=== PATIENT | male | born 1985 | race Caucasian/White ===

== ENCOUNTER 2017-02-27 12:19 | Emergency (ER) | payer MEDICAID ==
[2017-02-27 12:42] VITALS: BP 138/87
--- NOTE | 2017-02-27 13:28 | UC ---
Dental HPI - HPI Summary HPI Summary: pt c/o lower left tooth pain and discharge. Pt has 20 year history of poor dentition . - History of Current Complaint Chief Complaint: UCDentalProblem Stated Complaint: dental complaint Time Seen by Provider: 02/27/17 13:14 Hx Obtained From: Patient Onset/Duration: Gradual Onset, Lasting Weeks, Still Present, Worse Since - onset Severity: Moderate Aggravating Factor(s): Cold, Chewing Alleviating Factor(s): Other (see comments) - pt began taking amox 975 he had left over Related History: Discharge, Swelling - Allergies/Home Medications Allergies/Adverse Reactions: Allergies Allergy/AdvReac Type Severity Reaction Status Date / Time No Known Allergies Allergy Verified 02/27/17 12:42 PMH/Surg Hx/FS Hx/Imm Hx Previously Healthy: Yes - Surgical History Surgical History: None - Family History Known Family History: Positive: Cardiac Disease - Social History Occupation: Employed Full-time Lives: With Family Alcohol Use: Occasionally Substance Use Type: None Substance Use Comment - Amount & Last Used: 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 Smoking Status (MU): Heavy Every Day Tobacco Smoker Type: Cigarettes Amount Used/How Often: 1 1/2 PPD Length of Time of Smoking/Using Tobacco: 17 Years Have You Smoked in the Last Year: Yes Household Exposure Type: Cigarettes - Immunization History Most Recent Influenza Vaccination: "Couldn't Remember" Vaccination Up to Date: No Review of Systems Constitutional: Negative Skin: Negative Eyes: Negative ENT: Dental Pain, Other - jaw pain Respiratory: Negative Cardiovascular: Negative Gastrointestinal: Negative Genitourinary: Negative Motor: Negative Neurovascular: Negative Musculoskeletal: Negative Neurological: Negative Psychological: Negative Is Patient Immunocompromised?: No All Other Systems Reviewed And Are Negative: Yes Physical Exam Triage Information Reviewed: Yes Appearance: Well-Appearing Vital Signs: Initial Vital Signs Temp 98.9 F 02/27/17 12:39 Pulse 87 02/27/17 12:39 Resp 17 02/27/17 12:39 BP 138/87 02/27/17 12:39 Pulse Ox 100 02/27/17 12:39 Vital Signs Reviewed: Yes Eye Exam: Normal ENT Exam: Normal Dental Exam: Other Dental: Positive: Gross Decay/Caries @, Dental Fracture @, Abscess @ - left lower tooth Neck exam: Normal Neck: Positive: Supple, Nontender, No Lymphadenopathy Respiratory Exam: Normal Cardiovascular Exam: Normal Musculoskeletal Exam: Normal Neurological Exam: Normal Psychological Exam: Normal Skin Exam: Normal Dental Complaint Course/Dx - Differential Dx/Diagnosis Differential Diagnosis/Dx: Dental Abscess, Fractured Tooth Provider Diagnoses: dental abscess. dental fracture Discharge - Discharge Plan Condition: Stable Disposition: HOME Prescriptions: Amoxicillin PO (*) [Amoxicillin 500 MG CAP*] 500 mg PO Q12H #20 cap Ibuprofen TAB* [Motrin TAB* 800 MG] 800 mg PO Q8H PRN #30 tab PRN Reason: Pain predniSONE TAB* [Deltasone TAB*] 20 mg PO DAILY #4 tab Patient Education Materials: Dental Abscess (ED) Referrals: Abdiel Jane MD [Primary Care Provider] - If Needed Additional Instructions: Please follow up with your Dental care provider as soon as possible.
== END 2017-02-27 13:39 | disposition home or self-care (01) ==
LOC: UCCORT 12:19
DX: K04.7 Periapical abscess without sinus (principal); K03.81 Cracked tooth; Z87.891 Personal history of nicotine dependence
CPT/HCPCS: 99212; G0463

== ENCOUNTER 2017-08-18 16:47 | Emergency (ER) | payer SELFPAY ==
[2017-08-18] MEDS ORDERED: Tetracaine 0.5% OPTH.SOL 4 ML* 1 DROP BTL RIGHT EYE ONE (17:06)
[2017-08-18] MEDS ORDERED: Fluorescein Sod TOPICAL 0.6* 0.6 MG TEST OPHTHALMIC ONE (17:06)
[2017-08-18 17:12] VITALS: BP 121/77
--- NOTE | 2017-08-18 17:32 | UC ---
Eye Complaint HPI - HPI Summary HPI Summary: Was welding Saturday 10 am and felt like a flash burn in the eye. Has had persistent pain. - History of Current Complaint Chief Complaint: UCEye Stated Complaint: LEFT EYE POSSIBLE FB Time Seen by Provider: 08/18/17 17:07 Hx Obtained From: Patient Onset/Duration: Sudden Onset, Lasting Days - 2, Still Present Timing: Constant Severity Initially: Mild Severity Currently: Severe Pain Intensity: 9 Location of Injury: Other - Cornea Character: Foreign Body Sensation Aggravating Factor(s): Blinking Alleviating Factor(s): Nothing Associated Signs And Symptoms: Negative: Photophobia, Drainage (Clear), Drainage (Purulent), Vision Impairment Left Related History: Diagnosed As: - welding flash burn - Risk Factors Penetrating Injury Risk Factor: Grinding - and welding Globe Rupture Risk Factors: Negative - Allergies/Home Medications Allergies/Adverse Reactions: Allergies Allergy/AdvReac Type Severity Reaction Status Date / Time No Known Allergies Allergy Verified 08/18/17 17:03 Home Medications: Home Medications NK [No Home Medications Reported] 08/18/17 [History Confirmed 08/18/17] PMH/Surg Hx/FS Hx/Imm Hx Previously Healthy: Yes - Surgical History Surgical History: None - Family History Known Family History: Positive: Cardiac Disease, Diabetes - Social History Occupation: Employed Full-time Lives: With Family Alcohol Use: Occasionally Substance Use Type: None Substance Use Comment - Amount & Last Used: 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 Smoking Status (MU): Heavy Every Day Tobacco Smoker Type: Cigarettes Amount Used/How Often: 1 1/2 PPD Length of Time of Smoking/Using Tobacco: 17 Years Have You Smoked in the Last Year: Yes Household Exposure Type: Cigarettes Cessation Counseling: Patient Advised to Stop - Immunization History Most Recent Influenza Vaccination: "Couldn't Remember" Most Recent Tetanus Shot: w/in last 10 years Vaccination Up to Date: No Review of Systems Eyes: Eye Redness, Other - pain OD Is Patient Immunocompromised?: No All Other Systems Reviewed And Are Negative: Yes Physical Exam Triage Information Reviewed: Yes Appearance: Well-Appearing, Well-Nourished, Pain Distress - holding left eye Vital Signs: Initial Vital Signs Temp 98 F 08/18/17 17:04 Pulse 69 08/18/17 17:04 Resp 16 08/18/17 17:04 BP 121/77 08/18/17 17:04 Pulse Ox 98 08/18/17 17:04 Vital Signs Reviewed: Yes Eyes: Positive: Conjunctiva Inflamed - OS, Other: - Obvious black FB cornia on the nasal aspect at 9 oclock. Neck exam: Normal Respiratory Exam: Normal Cardiovascular Exam: Normal Musculoskeletal Exam: Normal Neurological Exam: Normal Psychological Exam: Normal Skin Exam: Normal Procedures - Eye Procedure Alcaine Drops Administered: Yes Eye FB Removal: removal w/ needle - Partial removal. FB broke apart leaving Antibiotic Ointment/Drps Admin: left eye Eye Complaint Course/Dx - Differential Dx/Diagnosis Differential Diagnosis/HQI/PQRI: Corneal Abrasion, Foreign Body, Penetrating Injury Provider Diagnoses: Left eye corneal foreign body Discharge - Sign-Out/Discharge Documenting (check all that apply): Discharge/Admit/Transfer - Discharge Plan Condition: Stable Disposition: HOME Patient Education Materials: Eye Foreign Body (ED) Referrals: Abdiel Jane MD [Primary Care Provider] - Brian Adkins MD [Medical Doctor] - 1 Day (Foreign body still in eye. ) Additional Instructions: EYE OINTMENT USE: Wash hands. Place 1/4" strip across tip of finger. Pull lower lid down with the index finger and stabilize the ointment finger with the middle finger and scrape the ointment off on the lid. Pull the lid out and let go as you look down. Smoking Cessation Tricks. 1. Cut down by 1 cigarette per day every 2-3 days. Write the number of smokes for that day on the calendar. 2. Identify triggers to smoking: after meals, on the phone, in the car, with coffee, on breaks at work, etc. 3. Formulate a plan with a behavior to replace the smoking. Fireballs in the car , doodle pad on the phone, flavored creamer for the coffee, go for a walk after a meal or on break at work. 4. For stress smokes do deep breathing relaxation. Breath deep in through the nose hold the breath in for a few seconds then breath out slowly through the mouth. - Billing Disposition and Condition Condition: STABLE Disposition: HOME
[2017-08-18] MEDS ORDERED: Erythromycin OPTH OINT* APPLIC OINT LEFT EYE ONE (17:36)
== END 2017-08-18 18:01 | disposition home or self-care (01) ==
LOC: UCCORT 16:47
DX: T15.02XA Foreign body in cornea, left eye, initial encounter (principal); S00.252A Superficial foreign body of left eyelid and periocular area, initial encounter; X58.XXXA Exposure to other specified factors, initial encounter; Y93.89 Activity, other specified; Y92.9 Unspecified place or not applicable; F17.210 Nicotine dependence, cigarettes, uncomplicated
CPT/HCPCS: 99212; A9270-GY; G0463

== ENCOUNTER 2017-10-02 11:41 | Emergency (ER) | payer OTHER ==
--- OUTSIDE RECORDS SUMMARY | 2017-10-02 11:54 | XMS REPORT ---
:1985 External Reference #:[id number] Author Organization [facility] Address [address] [place] [address] Phone [phone] Care Team Providers Name Role Phone Abdiel Jane M.D. Care Team Information Communications Administrator Unavailable Abdiel Jane M.D. Primary Care Physician Unavailable Payers Type Date Identification Numbers Payment Provider Subscriber Commercial Policy Number: [id number] [facility] Hunter Limon PayID: [id number] [address] [place] [address] Medicaid Policy Number: [id number] Medicaid Hunter Limon PayID: [id number] [address] [place] [address] Medigap Part B Policy Number: [id number] [employer] Hunter Limon [phone] [place] [address] Problems Date Description Provider Status Onset: 09/06/2017 Pain in scrotum Sepideh Ramirez M.D. Active Onset: 03/07/2017 Genital warts Sepideh Ramirez M.D. 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 Cigarette Use current cigarette smoker Cigarette Use Current Cigarette Smoker 1 Pack Daily Cigarette Use Pack Years - 14 ETOH Use Currently consumes alcohol Socially Smoking Patient is a current smoker, smokes 20 cigarettes q day every day Recreational Drug Use Marijuana once and a while Daily Caffeine Consumes on average 1 cup of regular 1 pot q day coffee per day Allergies, Adverse Reactions, Alerts Date Description Reaction Status Severity Comments 09/08/2010 NKDA active Medications Medication Date Status Form Strength Qnty SIG Indications Ordering Provider No Active Active Unknown Medications 018 No Active Hx Unknown Medications 018 - 018 Tobramycin Hx Solution 0.3% 1units 1 drop T15.02xA Brian 018 left MD Jed eye four times daily for 4 days Amoxicillin Hx Capsules 500mg 1 q day Mahmoud 017 - James, M.D. [address] 40mg 30tabs 1 by Mahmothomas Sodium 017 - mouth James, every M.D. 018 day Ibuprofen 0 Hx Tablets 800mg qid Unknown 000 - 018 Vital Signs Date Vital Result Comment 09/05/2017 BP Systolic Sitting Left Arm 122 mmHg BP Diastolic Sitting Left Arm 67 mmHg Body Temperature 98.0 F Heart Rate 61 /min Height 64 inches 5'4" Weight 139.00 lb BMI (Body Mass Index) 23.9 kg/m2 BSA (Body Surface Area) 1.68 m2 [place] body weight in kilograms 59 O2 % BldC Oximetry 97 % 03/07/2017 BP Systolic 147 mmHg BP Diastolic 86 mmHg Body Temperature 98.0 F 36.7C Heart Rate 86 /min Respiratory Rate 16 /min Height 64 inches 5'4" Weight 145.00 lb BMI (Body Mass Index) 24.9 kg/m2 BSA (Body Surface Area) 1.71 m2 [place] body weight in kilograms 59 O2 % BldC Oximetry 97 % Pain Level 0 09/13/2010 BP Systolic Sitting Left Arm 104 mmHg BP Diastolic Sitting Left Arm 72 mmHg Body Temperature 97.6 F Heart Rate 78 /min Respiratory Rate 20 /min Height 64 inches 5'4" Weight 141.00 lb BMI (Body Mass Index) 24.2 kg/m2 Results Description No Information Procedures Date CPT Code Description Status 08/19/2017 51419 Remove Foreign Body Cornea W/ Slit Lamp Completed 03/08/2017 34396 Destruction Penis Lesion(S) Simple Surgical Excision Completed 03/08/2017 24121 Destruction Penis Lesion(S) Simple Laser Surgery Completed Encounters Type Date Location Provider CPT E/M Dx Office Visit 09/06/2017 11:30a Urology Sepideh Ramirez M.D. 59491 N50.82 Office Visit 08/22/2017 1:45[place] [address] T15.02xA Office Visit 03/07/2017 9:30a Urology Sepideh Ramirez M.D. 46312 A63.0 Office Visit 09/13/2010 9:15a Surgical Office Gregor Martin M.D. 12322 685.1 V15.82 Plan of Care Future Appointment(s):03/27/2018 8:30 am - Sepideh Ramirez M.D. at [id number] - Sepideh Ramirez M.D.N50.82 Scrotal painComments:I will check the urine to ensure he doesn't have a UTI. I will also order a CT scan for evaluation of any kidney stones or any inguinal hernias that could be giving him pain that he is having intermittently.Patient will follow up with me in 1 year to discuss vasectomy.
[2017-10-02 12:03] VITALS: BP 126/78
--- NOTE | 2017-10-02 12:22 | UC ---
Dental HPI - HPI Summary HPI Summary: Left lower dental pain for a few days. Ibuprofen is working. No fever or swelling. He has a dentist but has a balance to pay. - History of Current Complaint Chief Complaint: UCDentalProblem Stated Complaint: DENTAL COMPLAINT Time Seen by Provider: 10/02/17 12:12 Hx Obtained From: Patient Onset/Duration: Gradual Onset, Lasting Days, Still Present Severity: Moderate Pain Intensity: 7 Aggravating Factor(s): Heat, Cold, Chewing Alleviating Factor(s): OTC Meds - Allergies/Home Medications Allergies/Adverse Reactions: Allergies Allergy/AdvReac Type Severity Reaction Status Date / Time No Known Allergies Allergy Verified 10/02/17 12:03 Home Medications: Home Medications Ibuprofen TAB* [Motrin TAB* 800 MG] 800 mg PO Q6H 10/02/17 [History Confirmed ] PMH/Surg Hx/FS Hx/Imm Hx Previously Healthy: No - upper denture. 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 Smoking Status (MU): Heavy Every Day Tobacco Smoker Type: Cigarettes Amount Used/How Often: 1 1/2 PPD Length of Time of Smoking/Using Tobacco: 17 Years Have You Smoked in the Last Year: Yes Household Exposure Type: Cigarettes - Immunization History Most Recent Influenza Vaccination: "Couldn't Remember" Most Recent Tetanus Shot: w/in last 10 years Vaccination Up to Date: No Review of Systems ENT: Dental Pain All Other Systems Reviewed And Are Negative: Yes Physical Exam Triage Information Reviewed: Yes Appearance: Well-Appearing, No Pain Distress, Well-Nourished Vital Signs: Initial Vital Signs Temp 98.8 F 10/02/17 11:58 Pulse 64 10/02/17 11:58 Resp 19 10/02/17 11:58 BP 126/78 10/02/17 11:58 Pulse Ox 100 10/02/17 11:58 Vital Signs Reviewed: Yes Eyes: Positive: Conjunctiva Clear ENT: Positive: Normal ENT inspection, Pharynx normal, Dental tenderness, Other - diffuse dental decay without swelling or adenopathy.. Negative: Pharyngeal erythema, Nasal congestion Dental: Positive: Percussion Tenderness @, Gross Decay/Caries @, Dental Fracture @. Negative: Abscess @, Cellulitis @, Cervical Lymphadenopathy, Bleeding Neck: Positive: Supple, Nontender, No Lymphadenopathy. Negative: Nuchal Rigidity Respiratory: Positive: Lungs clear, Normal breath sounds, No respiratory distress, No accessory muscle use. Negative: Respiratory distress, Decreased breath sounds, Accessory muscle use Cardiovascular: Positive: No Murmur, Pulses Normal, Brisk Capillary Refill Abdomen Description: Positive: Soft. Negative: Distended, Guarding Musculoskeletal: Positive: Strength Intact, ROM Intact, No Edema Neurological: Positive: Alert, Muscle Tone Normal. Negative: Fatigued Skin: Negative: rashes Dental Complaint Course/Dx - Differential Dx/Diagnosis Provider Diagnoses: dental pain. dental decay. Discharge - Sign-Out/Discharge Documenting (check all that apply): Discharge/Admit/Transfer - Discharge Plan Condition: Good Disposition: HOME Prescriptions: Clindamycin Cap(NF) [Clindamycin Cap 300 mg Cap(NF)] 300 mg PO TID #30 cap Ibuprofen TAB* [Motrin TAB* 800 MG] 800 mg PO TID PRN #30 tab PRN Reason: Pain Patient Education Materials: Toothache (ED), Gingivostomatitis (ED) Referrals: Abdiel Jane MD [Primary Care Provider] - - Billing Disposition and Condition Condition: GOOD Disposition: Home
== END 2017-10-02 12:27 | disposition home or self-care (01) ==
LOC: UCCORT 11:41
DX: K08.89 Other specified disorders of teeth and supporting structures (principal); K02.9 Dental caries, unspecified; F17.210 Nicotine dependence, cigarettes, uncomplicated
CPT/HCPCS: 99212; G0463

== ENCOUNTER 2017-12-09 21:06 | Emergency (ER) | payer OTHER ==
[2017-12-09 21:12] VITALS: BP 135/75
--- OUTSIDE RECORDS SUMMARY | 2017-12-09 21:12 | XMS REPORT ---
:1985 External Reference #:[id number] Author Organization [facility] Address [address] [place] [address] Phone [phone] Care Team Providers Name Role Phone Abdiel Jane M.D. Care Team Information Cardio Clinician Unavailable Abdiel Jane M.D. Primary Care Physician Unavailable Payers Type Date Identification Numbers Payment Provider Subscriber Commercial Policy Number: [id number] [employer] Hunter Limon PayID: [id number] [address] [place] [address] Medigap Part B Expires: 2017 Policy Number: [id number] [employer] Hunter Limon [phone] [place] [address] Workers Compensation Onset: 2017 Policy Number: [place] Hunter Limon [id number] Group Number: [id number] [facility] [address] Group Name: [place] [address] PayID: [id number] Problems Date Description Provider Status Onset: 09/06/2017 [...] Patient follows no dietary restrictions 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 018 day Ibuprofen 0000/0 Hx Tablets 800mg qid Unknown 000 - 018 Vital Signs Date Vital Result Comment 09/05/2017 BP Systolic Sitting Left Arm 122 mmHg BP Diastolic Sitting Left Arm 67 mmHg Body Temperature 98.0 F Heart Rate 61 /min Height 64 inches 5'4" Weight 139.00 lb BMI (Body Mass Index) 23.9 kg/m2 BSA (Body Surface Area) 1.68 m2 [place] body weight in kilograms 59 O2 % BldC Oximetry 97 % 03/07/2017 BP Systolic 147 mmHg BP Diastolic 86 mmHg Body Temperature 98.0 F 36.7C Heart Rate 86 /min Respiratory Rate 16 /min Height 64 inches 5'4" Weight 145.00 lb BMI (Body Mass Index) 24.9 kg/m2 BSA (Body Surface Area) 1.71 m2 [place] body weight in kilograms 59 O2 % BldC Oximetry 97 % Pain Level 0 09/13/2010 BP Systolic Sitting Left Arm 104 mmHg BP Diastolic Sitting Left Arm 72 mmHg Body Temperature 97.6 F Heart Rate 78 /min Respiratory Rate 20 /min Height 64 inches 5'4" Weight 141.00 lb BMI (Body Mass Index) 24.2 kg/m2 Results Test Date Test Result H/L Range Note Ua RFX Micro & Culture II 09/06/2017 Urine Color YELLOW Yellow 1 Urine Clarity CLEAR Clear 1 Urine Glucose - Dipstick NEGATIVE mg/dL Negative 1 Urine Bilirubin - Dipstick NEGATIVE Negative 1 Urine Ketone NEGATIVE mg/dL Negative 1 Urine Specific [place] 1.025 1.010-1.030 1 Urine Blood NEGATIVE Negative 1 Urine PH 6.0 Low 6.5-7.5 1 Urine Protein - Dipstick NEGATIVE mg/dL Negative 1 Urine Urobilinogen - Dipstick 0.2 E.U./dL 0.2-1.0 1 Urine Nitrite - Dipstick NEGATIVE Negative 1 Urine Leuk Esterase NEGATIVE Negative 1 Source: URINE, CLEAN CAT <SEE NOTE> 1, 2 1 N50.82 2 URINE, CLEAN CATCH Procedures Date CPT Code Description Status 08/19/2017 05221 Remove Foreign Body Cornea W/ Slit Lamp Completed 03/08/2017 22379 Destruction Penis Lesion(S) Simple Surgical Excision Completed 03/08/2017 82401 Destruction Penis Lesion(S) Simple Laser Surgery Completed Encounters Type Date Location Provider CPT E/M Dx Office Visit 09/06/2017 11:30a Urology Sepideh Ramirez M.D. 84331 N50.82 Office Visit 08/22/2017 1:45[place] [address] T15.02xA Office Visit 03/07/2017 9:30a Urology Sepideh Ramirez M.D. 35456 A63.0 Office Visit 09/13/2010 9:15a Surgical Office Gregor Martin M.D. 42137 685.1 V15.82 Plan of Care Future Appointment(s):03/27/2018 8:30 am - Sepideh Ramirez M.D. at [id number] - Sepideh Ramirez M.D.N50.82 Scrotal painComments:I will check the urine to ensure he doesn't have a UTI. I will also order a CT scan for evaluation of any kidney stones or any inguinal hernias that could be giving him pain that he is having intermittently.Patient will follow up with me in 1 year to discuss vasectomy.
[2017-12-09] MEDS ORDERED: Tetracaine 0.5% OPTH.SOL 15ML* BTL RIGHT EYE ONE (21:18)
[2017-12-09] MEDS ORDERED: Tetracaine 0.5% OPTH.SOL 4 ML* 1 DROP BTL ONE (21:18)
--- NOTE | 2017-12-09 21:33 | UC ---
Eye Complaint HPI - HPI Summary HPI Summary: The patient is a 31-year-old male that developed a foreign body sensation in his right eye despite wearing safety glasses. This occurred earlier today. He has made multiple attempts to remove it himself with a Q-tip. States she has had multiple corneal foreign bodies. He is very light sensitivity. 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 - History of Current Complaint Chief Complaint: UCEye Stated Complaint: EYE COMPLAINT Time Seen by Provider: 12/09/17 21:08 Hx Obtained From: Patient Onset/Duration: Sudden Onset, Lasting Hours Timing: Constant Severity Initially: Moderate Severity Currently: Severe Pain Intensity: 8 Pain Scale Used: 0-10 Numeric Location of Injury: Conjunctiva Character: Foreign Body Sensation Aggravating Factor(s): Light Alleviating Factor(s): Darkness Associated Signs And Symptoms: Positive: Photophobia, Drainage (Clear) - tearing Related History: Foreign Body Eyes: 1 - FB - Risk Factors Penetrating Injury Risk Factor: Grinding - Allergies/Home Medications Allergies/Adverse Reactions: Allergies Allergy/AdvReac Type Severity Reaction Status Date / Time No Known Allergies Allergy Verified 12/09/17 21:12 Home Medications: Home Medications Tobramycin 0.3% OPHTH.OINT* [Tobrex 0.3% OPHTH.OINT*] 1 applic 12/09/17 [History ] PMH/Surg Hx/FS Hx/Imm Hx Previously Healthy: Yes - Surgical History Surgical History: None - Family History Known Family History: Positive: Cardiac Disease, Hypertension, Diabetes - Social History Alcohol Use: Occasionally Substance Use Type: None Substance Use Comment - Amount & Last Used: 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 Smoking Status (MU): Heavy Every Day Tobacco Smoker Type: Cigarettes Amount Used/How Often: 1 1/2 PPD Length of Time of Smoking/Using Tobacco: 17 Years Have You Smoked in the Last Year: Yes Household Exposure Type: Cigarettes - Immunization History Most Recent Influenza Vaccination: "Couldn't Remember" Most Recent Tetanus Shot: w/in last 10 years Vaccination Up to Date: No Review of Systems Constitutional: Negative Skin: Negative Eyes: Eye Redness, Photophobia ENT: Negative Respiratory: Negative Cardiovascular: Negative Gastrointestinal: Negative Genitourinary: Negative Motor: Negative Neurovascular: Negative Musculoskeletal: Negative Neurological: Negative Psychological: Negative Is Patient Immunocompromised?: No All Other Systems Reviewed And Are Negative: Yes Physical Exam Triage Information Reviewed: Yes Appearance: Well-Appearing, No Pain Distress, Well-Nourished Vital Signs: Initial Vital Signs Temp 98.3 F 12/09/17 21:06 Pulse 69 12/09/17 21:06 Resp 18 12/09/17 21:06 BP 135/75 12/09/17 21:06 Pulse Ox 98 12/09/17 21:06 Vital Signs Reviewed: Yes Eyes: Positive: Conjunctiva Inflamed, Other: - eomi/perrl, (+) FB see image ENT: Positive: Nasal drainage. Negative: Dental tenderness, Uvula midline Neck: Positive: Supple, Nontender Respiratory: Positive: Lungs clear, Normal breath sounds, No respiratory distress Cardiovascular: Positive: RRR, No Murmur Musculoskeletal: Positive: ROM Intact, No Edema Neurological: Positive: Alert Psychological Exam: Normal Skin Exam: Normal Procedures - Eye Procedure Right Alcaine Drops Administered: Yes Eye FB Removal: removal w/ needle Eye Complaint Course/Dx - Differential Dx/Diagnosis Provider Diagnoses: foreign body removed right cornea Discharge - Sign-Out/Discharge Documenting (check all that apply): Patient Departure All imaging exams completed and their final reports reviewed: No Studies - Discharge Plan Condition: Stable Disposition: HOME Patient Education Materials: Eye Foreign Body (ED) Referrals: Abdiel Jane MD [Primary Care Provider] - If Needed Krystian Holm MD [Medical Doctor] - If Needed Additional Instructions: A foreign body was removed you can use your antibiotic drops as directed tylenol or advil for pain You have a residual RUST RING you can have that removed by an eye doctor RECHECK TOMORROW IF NOT MARKEDLY IMPROVED - Billing Disposition and Condition Condition: STABLE Disposition: Home
== END 2017-12-09 21:46 | disposition home or self-care (01) ==
LOC: UCEAST 21:06
DX: T15.01XA Foreign body in cornea, right eye, initial encounter (principal); X58.XXXA Exposure to other specified factors, initial encounter; Y93.89 Activity, other specified; Y92.9 Unspecified place or not applicable; F17.210 Nicotine dependence, cigarettes, uncomplicated
CPT/HCPCS: 65220; 99211; A9270-GY; G0463

== ENCOUNTER 2018-08-18 08:52 | Emergency (ER) | payer OTHER ==
[2018-08-18 09:07] VITALS: BP 133/65
--- NOTE | 2018-08-18 09:28 | UC ---
Skin Complaint HPI - HPI Summary HPI Summary: 32 yo male with the onset of pain in region of medial raphe in perineal about 4 days ago First noted when he was having a bowel movement hurts to sit no f/c no n/v/d no hx MRSA no hx I&D - History of Current Complaint Chief Complaint: UCSkin Time Seen by Provider: 08/18/18 09:05 Stated Complaint: PERSONAL Hx Obtained From: Patient Onset/Duration: Gradual Onset Timing: Constant Onset Severity: Mild Current Severity: Severe Pain Intensity: 8 Pain Scale Used: 0-10 Numeric Location: Discrete Character: Pain, Redness, Raised Aggravating Factor(s): Touch, Other - sitting Alleviating Factor(s): Nothing Associated Signs & Symptoms: Positive: Tenderness. Negative: Nausea, Vomiting, Numbness, Thirst, Diaphoresis, Weakness, Pallor, Shivering, Difficulty Breathing , Fever, Chills, Cough, Wheezing, Chest Pain, Hoarseness, Throat Tightening, Rash, Abdominal Pain, Lightheadedness, Syncope, Drainage, Bruising, Red Streaks , Joint Swelling - Allergy/Home Medications Allergies/Adverse Reactions: Allergies Allergy/AdvReac Type Severity Reaction Status Date / Time No Known Allergies Allergy Verified 08/18/18 09:03 PMH/Surg Hx/FS Hx/Imm Hx Previously Healthy: Yes - Surgical History Surgical History: None - Family History Known Family History: Positive: None, Cardiac Disease, Hypertension, Diabetes - Social History Alcohol Use: Occasionally Substance Use Type: None Substance Use Comment - Amount & Last Used: 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 Smoking Status (MU): Heavy Every Day Tobacco Smoker Type: Cigarettes Amount Used/How Often: 1 1/2 PPD Length of Time of Smoking/Using Tobacco: Since Age 12 Have You Smoked in the Last Year: Yes Household Exposure Type: Cigarettes - Immunization History Most Recent Influenza Vaccination: "Couldn't Remember" Most Recent Tetanus Shot: w/in last 10 years Vaccination Up to Date: No Review of Systems All Other Systems Reviewed And Are Negative: Yes Constitutional: Positive: Negative Skin: Positive: Negative Eyes: Positive: Negative ENT: Positive: Negative Respiratory: Positive: Negative Cardiovascular: Positive: Negative Gastrointestinal: Positive: Negative Genitourinary: Positive: Negative Motor: Positive: Negative Neurovascular: Positive: Negative Musculoskeletal: Positive: Negative Neurological: Positive: Negative Psychological: Positive: Negative Physical Exam Triage Information Reviewed: Yes Appearance: Well-Appearing, No Pain Distress, Well-Nourished Vital Signs: Initial Vital Signs Temp 98.1 F 08/18/18 09:00 Pulse 100 08/18/18 09:00 Resp 18 08/18/18 09:00 BP 133/65 08/18/18 09:00 Pulse Ox 99 08/18/18 09:00 Vital Signs Reviewed: Yes Eyes: Positive: Conjunctiva Clear ENT: Negative: Nasal congestion, Nasal drainage, Trismus, Muffled voice, Hoarse voice Neck: Positive: Supple, Nontender, No Lymphadenopathy Respiratory: Positive: Lungs clear, Normal breath sounds, No respiratory distress, No accessory muscle use Cardiovascular: Positive: RRR, No Murmur Musculoskeletal: Positive: ROM Intact, No Edema Neurological: Positive: Alert Psychological Exam: Normal Skin Exam: Other - tender and swollen along medial raphe mid point between anus and scrotum, no flutuance...overlying erthema...? medial raphe cyst vs early abscess vs other Course/Dx - Diagnoses Provider Diagnosis: Infected perineal abrasion, Median raphe cyst of male genitoperineal region Discharge - Sign-Out/Discharge Documenting (check all that apply): Patient Departure All imaging exams completed and their final reports reviewed: No Studies - Discharge Plan Condition: Stable Disposition: HOME Prescriptions: DOXYcycline CAP(*) [DOXYcycline 100MG CAP(*)] 100 mg PO BID #20 cap Patient Education Materials: Sitz Bath (DC) Forms: *Work Release Referrals: Abdiel Jane MD [Primary Care Provider] - 2 Days (recheck in 2-3 days) Additional Instructions: You have an infection that may go on to develop an abscess sitz batx 4-6 x day today and tomorrow recheck for new or worsening symptoms - Billing Disposition and Condition Condition: STABLE Disposition: Home
== END 2018-08-18 09:35 | disposition home or self-care (01) ==
LOC: UCCORT 08:52
DX: S30.810A Abrasion of lower back and pelvis, initial encounter (principal); N50.89 Other specified disorders of the male genital organs; F17.210 Nicotine dependence, cigarettes, uncomplicated; X58.XXXA Exposure to other specified factors, initial encounter
CPT/HCPCS: 99212; G0463

== ENCOUNTER 2018-09-23 08:58 | Emergency (ER) | payer OTHER ==
[2018-09-23 09:14] VITALS: BP 151/56
--- NOTE | 2018-09-23 10:31 | UC ---
Lower Extremity/Ankle HPI - HPI Summary HPI Summary: bilateral leg pain x 3 days leg crams bilateral calves, pain is 6 out of 10 , no radiation worse with waling and working , better with rest and drinking fluid no known injury, no recent travels, + smoking no cough , no sob - History of Current Complaint Chief Complaint: UCLowerExtremity Stated Complaint: BILATERAL LEG CRAMPS/PAIN Time Seen by Provider: 09/23/18 09:24 Hx Obtained From: Patient Onset/Duration: Gradual Onset, Lasting Days - 3, Still Present Severity Initially: Mild Severity Currently: Moderate Pain Intensity: 6 Pain Scale Used: 0-10 Numeric Aggravating Factor(s): Standing, Ambulation Alleviating Factor(s): Rest, Elevation Able to Bear Weight: Yes - Risk Factors DVT Risk Factors: Smoking - Allergies/Home Medications Allergies/Adverse Reactions: Allergies Allergy/AdvReac Type Severity Reaction Status Date / Time No Known Allergies Allergy Verified 09/23/18 09:14 PMH/Surg Hx/FS Hx/Imm Hx Previously Healthy: Yes - Surgical History Surgical History: None - Family History Known Family History: Positive: None, Cardiac Disease, Hypertension, Diabetes - Social History Alcohol Use: Rare Substance Use Type: Marijuana Substance Use Comment - Amount & Last Used: 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 occasional marijuana Smoking Status (MU): Heavy Every Day Tobacco Smoker Type: Cigarettes Amount Used/How Often: 1 1/2 PPD Length of Time of Smoking/Using Tobacco: Since Age 12 Have You Smoked in the Last Year: Yes Household Exposure Type: Cigarettes - Immunization History Most Recent Influenza Vaccination: "Couldn't Remember" Most Recent Tetanus Shot: w/in last 10 years Vaccination Up to Date: No Review of Systems All Other Systems Reviewed And Are Negative: Yes Constitutional: Positive: Negative Skin: Positive: Negative Eyes: Positive: Negative ENT: Positive: Negative Is Patient Immunocompromised?: No Physical Exam Triage Information Reviewed: Yes Appearance: Well-Appearing, No Pain Distress, Well-Nourished Vital Signs: Initial Vital Signs Temp 98.3 F 09/23/18 09:05 Pulse 89 09/23/18 09:05 Resp 16 09/23/18 09:05 BP 151/56 09/23/18 09:05 Pulse Ox 98 09/23/18 09:05 Vital Signs Reviewed: Yes Eye Exam: Normal Eyes: Positive: Conjunctiva Clear ENT: Positive: Normal ENT inspection, Hearing grossly normal, Pharynx normal Neck: Positive: Supple, Nontender, No Lymphadenopathy Respiratory: Positive: Chest non-tender, Lungs clear, Normal breath sounds Cardiovascular: Positive: RRR, No Murmur, Pulses Normal Abdominal Exam: Normal Abdomen Description: Positive: Nontender, Soft Musculoskeletal: Positive: Other: - bilateral lower leg / calves: no erythema, no swelling, mild tenderness, Lower Extremity Course/Dx - Differential Dx/Diagnosis Provider Diagnosis: Bilateral leg cramps Discharge - Sign-Out/Discharge Documenting (check all that apply): Patient Departure All imaging exams completed and their final reports reviewed: No Studies - Discharge Plan Condition: Stable Disposition: HOME Prescriptions: Cyclobenzaprine TAB* [Flexeril 10 MG TAB*] 10 mg PO BID PRN #20 tab PRN Reason: Pain Patient Education Materials: Leg Cramps (ED) Forms: *Work Release Referrals: Abdiel Jane MD [Primary Care Provider] - 7 Days - Billing Disposition and Condition Condition: STABLE Disposition: Home
[2018-09-23 14:38] LABS: ABS Eosinophils 0.1 10^3/ul (0-0.6); ABS Lymphocytes 1.9 10^3/ul (1.0-4.8); ABS Monocytes 0.6 10^3/ul (0-0.8); ABS Neutrophils 5.5 10^3/ul (1.5-7.7); Eosinophil % 1.6 %; Hematocrit 46 % (42-52); Hemoglobin 16.1 g/dL (14.0-18.0); Mean Corpuscular HGB Conc 35 g/dL (31-36); Mean Corpuscular Hemoglobin 31 pg (27-31); Mean Corpuscular Volume 90 fL (80-94); Nucleated Red Blood Cells % 0.2; Platelet Count 204 10^3/uL (150-450); Red Blood Count 5.15 10^6 /uL (4.18-5.48); Red Cell Distribution Width 15 % (10-15); White Blood Count 8.2 10^3/uL (3.5-10.8)
[2018-09-23 14:47] LABS: Albumin 4.3 g/dL (3.2-5.2); Calcium 9.6 mg/dL (8.6-10.3); Potassium 4.6 mmol/L (3.5-5.0); Total Bilirubin 0.4 mg/dL (0.2-1.0)
[2018-09-23 14:53] LABS: Albumin/Globulin Ratio 1.9 (1-3); BUN/Creatinine Ratio 10.5 (8-20); EGFR African American 110.5 (>60); EGFR Non-African American 91.3 (>60); Globulin 2.3 g/dL (2-4); Total Protein 6.6 g/dL (6.4-8.9)
== END 2018-09-23 09:46 | disposition home or self-care (01) ==
LOC: UCCORT 08:58
DX: R25.2 Cramp and spasm (principal); F17.210 Nicotine dependence, cigarettes, uncomplicated
CPT/HCPCS: 36415; 80053; 85025; 85379; 99211; G0463

== ENCOUNTER 2019-02-09 15:50 | Emergency (ER) | payer OTHER ==
[2019-02-09 16:02] VITALS: BP 139/85
--- NOTE | 2019-02-09 16:10 | UC ---
Lower Extremity/Ankle HPI - HPI Summary HPI Summary: Patient is a 33yo male presenting with L foot and ankle pain after he cut his foot caught under a tall rolling toolbox at work. Patient states he heard " snaps and crackles" and believes he has multiple fractures. Patient states he continued to work 6 hours after that and hoped the pain would go away but it worsened. Notes numbness and tingling that has resolved. Notes increased pain with weight bearing. Denies radiating pain. Notes decreased ROM. Notes swelling of lateral ankle and arch of foot. Denies bruising. Denies decreased sensation. - History of Current Complaint Chief Complaint: UCLowerExtremity Stated Complaint: FOOT INJURY Hx Obtained From: Patient Onset/Duration: Sudden Onset, Lasting Hours Severity Currently: Severe Pain Intensity: 10 Pain Scale Used: 0-10 Numeric - Allergies/Home Medications Allergies/Adverse Reactions: Allergies Allergy/AdvReac Type Severity Reaction Status Date / Time No Known Allergies Allergy Verified 02/09/19 15:59 Home Medications: Home Medications NK [No Home Medications Reported] 02/09/19 [History Confirmed 02/09/19] PMH/Surg Hx/FS Hx/Imm Hx - Surgical History Surgical History: Yes Surgery Procedure, Year, and Place: wart removal. 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 occasional marijuana Smoking Status (MU): Heavy Every Day Tobacco Smoker Type: Cigarettes Amount Used/How Often: 1 PPD Length of Time of Smoking/Using Tobacco: Since Age 12 Have You Smoked in the Last Year: Yes Household Exposure Type: Cigarettes - Immunization History Most Recent Influenza Vaccination: "Couldn't Remember" Most Recent Tetanus Shot: w/in last 10 years Vaccination Up to Date: No Review of Systems All Other Systems Reviewed And Are Negative: No Constitutional: Positive: Negative Skin: Positive: Negative Respiratory: Positive: Negative Cardiovascular: Positive: Negative Gastrointestinal: Negative: Vomiting, Nausea Neurovascular: Positive: Negative Musculoskeletal: Positive: Arthralgia, Decreased ROM, Edema Neurological: Negative: Weakness, Paresthesia, Numbness Physical Exam Triage Information Reviewed: Yes Appearance: Well-Appearing, Well-Nourished, Pain Distress Vital Signs: Initial Vital Signs Temp 99.3 F 02/09/19 15:55 Pulse 81 02/09/19 15:55 Resp 18 02/09/19 15:55 BP 139/85 02/09/19 15:55 Pulse Ox 97 02/09/19 15:55 Vital Signs Reviewed: Yes Eyes: Positive: Conjunctiva Clear ENT: Positive: Hearing grossly normal Neck: Positive: Supple Respiratory: Positive: No respiratory distress Cardiovascular: Positive: Pulses Normal - Strong pedal pulses b/l, Brisk Capillary Refill Musculoskeletal: Positive: Strength Intact, ROM Limited @ - L dorsiflexion and plantar flexion, Edema @ - minimal edema noted of lateral L ankle Neurological Exam: Other - sensation grossly intact Neurological: Positive: Alert Psychological: Positive: Age Appropriate Behavior Skin Exam: Normal - no erythema or ecchymosis Diagnostics - Radiology L foot Radiology Interpretation Completed By: Radiologist Summary of Radiographic Findings: IMPRESSION: 1. EQUIVOCAL PUNCTATE OSSIFIC STRUCTURE ALONG THE DORSAL ASPECT OF THE NAVICULARIS AND NONDISPLACED LUCENCY THROUGH THE DISTAL FIBULA. CORRELATE WITH POINT TENDERNESS. REPEAT IMAGING IN 7- 10 DAYS IS RECOMMENDED. R ankle Radiology Interpretation Completed By: Radiologist Summary of Radiographic Findings: 1. EQUIVOCAL PUNCTATE OSSIFIC STRUCTURE ALONG THE DORSAL ASPECT OF THE NAVICULARIS AND NONDISPLACED LUCENCY THROUGH THE DISTAL FIBULA. CORRELATE WITH POINT TENDERNESS. REPEAT IMAGING IN 7-10 DAYS IS RECOMMENDED. Lower Extremity Course/Dx - Course Course Of Treatment: No clear fracture noted on xray. Discussed this with patient and instructed to continue with symptomatic treatment. He received ibuprofen, ice, toña wrap, gel splint, and crutches here. Instructed him to follow up with PCP or orthopedics if pain does not resolve within the next couple weeks. Directed to go to ED if symptoms worsen. Patient voiced understanding and agreed with the treatment plan. - Differential Dx/Diagnosis Provider Diagnosis: Left ankle sprain, Sprain of left foot Discharge ED - Sign-Out/Discharge Documenting (check all that apply): Patient Departure All imaging exams completed and their final reports reviewed: Yes - Discharge Plan Condition: Stable Disposition: HOME Patient Education Materials: Ankle Sprain (ED), Foot Sprain (ED) Forms: *Work Release Referrals: Abdiel Jane MD [Primary Care Provider] - If Needed Jay Gunderson MD [Medical Doctor] - If Needed Additional Instructions: As discussed, the xrays of the ankle and foot did not show any fractures. Rest, ice, elevate, and use the toña wrap and ankle splint to help relieve pain. You may also use the crutches until pain begins to resolve. You may also use over the counter pain medications as directed for relief of pain. If pain does not resolve, follow up with your PCP or orthopedics as listed below. Go to the emergency room if pain worsens, the foot becomes cold and numb, or you are not able to bear weight. - Billing Disposition and Condition Condition: STABLE Disposition: Home - Attestation Statements Provider Attestation: Per institutional requirements, I have reviewed the chart, however, I was not consulted specifically or made aware of this patient by the midlevel provider. I did not personally evaluate, interact with , or disposition this patient.
[2019-02-09] MEDS ORDERED: Ibuprofen TAB* 600 MG PO ONE (16:14)
== END 2019-02-09 17:15 | disposition home or self-care (01) ==
LOC: UCEAST 15:50
DX: S93.402A Sprain of unspecified ligament of left ankle, initial encounter (principal); S93.602A Unspecified sprain of left foot, initial encounter; W23.0XXA Caught, crushed, jammed, or pinched between moving objects, initial encounter; Y92.9 Unspecified place or not applicable; Y99.0 Civilian activity done for income or pay
CPT/HCPCS: 99213; A9270-GY; G0463